=== PATIENT | male | born 1975 | race African-American/Black ===

== ENCOUNTER 2017-05-23 18:54 | Emergency (ER) | payer SELFPAY ==
[~2017-05-23] VITALS: Ht 177.8 cm; Wt 82.0 kg
[~2017-05-23 18:54] MED LIST: BACT800T5 PO; CEPH500C3 PO; IBUP800T23 PO
[2017-05-23 18:55] VITALS: BP 145/85; PULSE 99; RESP 16; TEMP 98.9; O2SAT 97
[2017-05-23 19:02] VITALS: BP 136/87; PULSE 87; RESP 18; O2SAT 96
[2017-05-23] MEDS ORDERED: SODIUM CHLORIDE 0.9% FLUSH 10 ML FLUSH IVF PRN (19:30)
[2017-05-23] MEDS ORDERED: LIDOCAINE VISCOUS 2% SOLN 15 ML UDC PO ONE (19:30)
[2017-05-23] MEDS ORDERED: ALUMINUM/MAGNESIUM/SIMETH 30 ML CUP PO ONE (19:30)
[2017-05-23] MEDS ORDERED: THIAMINE INJ 100 MG in SODIUM CHLORIDE 0.9% INJ 100 ML IV ONE (19:30)
[2017-05-23] MEDS ORDERED: SODIUM CHLOR 0.9% 1000 ML INJ 1,000 ML IV ONE (19:30)
--- NOTE | 2017-05-23 20:36 | PD ---
HPI Chief Complaint: Pain: Acute or Chronic Time Seen by Provider: 19:10 Travel History International Travel<30 days: No Contact w/Intl Traveler<30days: No Traveled to known affect area: No History of Present Illness HPI Patient is a 42-year-old male presents emergency department for evaluation of chest pain the middle of his chest for the past 3 years on and off. He cannot really elicit why he came in today, he states he's had a couple of beers tonight as well, mild slurred speech. Denies any shortness of breath denies abdominal pain nausea or vomiting. States the pain is intermittent and severe for the past 3 years with associated signs symptoms as above. PFSH Past Medical History Asthma: Yes Cardiovascular Problems: Yes Diminished Hearing: No Hypertension: Yes Respiratory: Yes (Bronchitis) Immunizations Current: Yes Past Surgical History Surgical History: No Previous Surgery Social History Alcohol Use: Yes Tobacco Use: Yes (cigars) Substance Use: Yes (MARIJUANA OCCASIONALLY) Allergies-Medications (Allergen,Severity, Reaction): Coded Allergies: No Known Allergies (Verified , 09/23/15) Reported Meds & Prescriptions Reported Meds & Active Scripts Active Ibuprofen 800 Mg Tab 800 Mg PO Q8HR PRN 10 Days Bactrim DS (Sulfamethoxazole-Trimethoprim DS) 1 Tab Tab 1 Tab PO BID 10 Days Keflex (Cephalexin Monohydrate) 500 Mg Cap 1 Tab PO QID 10 Days Review of Systems Except as stated in HPI: all other systems reviewed are Neg Physical Exam Narrative GENERAL: Well-developed well-nourished, no obvious distress. SKIN: Focused skin assessment warm/dry. HEAD: Atraumatic. Normocephalic. EYES: Pupils equal and round. No scleral icterus. No injection or drainage. ENT: No nasal bleeding or discharge. Mucous membranes pink and moist. NECK: Trachea midline. No JVD. CARDIOVASCULAR: Regular rate and rhythm. No murmur appreciated. RESPIRATORY: No accessory muscle use. Clear to auscultation. Breath sounds equal bilaterally. GASTROINTESTINAL: Abdomen soft, non-tender, nondistended. Hepatic and splenic margins not palpable. MUSCULOSKELETAL: No obvious deformities. No clubbing. No cyanosis. No edema. Ambulates with an even narrow based gait. NEUROLOGICAL: Awake and alert. No obvious cranial nerve deficits. Motor grossly within normal limits. Mildly slurred speech. PSYCHIATRIC: Appropriate mood and affect; insight and judgment normal. Data Data Last Documented VS Vital Signs Date Time Temp Pulse Resp B/P (MAP) Pulse Ox O2 Delivery O2 Flow Rate FiO2 05/23/17 19:38 05/23/17 19:02 87 18 96 05/23/17 18:55 98.9 Room Air Orders Orders Complete Blood Count With Diff (05/23/17 19:20) Comprehensive Metabolic Panel (05/23/17 19:20) Magnesium (Mg) (05/23/17:20) Troponin I (05/23/17:20) Ecg Monitoring (05/23/17:20) Iv Access Insert/Monitor (05/23/17:20) Oximetry (05/23/17:20) Oxygen Administration (05/23/17:20) Sodium Chloride 0.9% Flush (Ns Flush) (05/23/17:30) Sodium Chlor 0.9% 1000 Ml Inj (Ns 1000 M (05/23/17 19:30) Thiamine Inj (Thiamine Inj) (05/23/17:30) Al-Mag Hy-Si 40-40-4 Mg/Ml Liq (Mag-Al P (05/23/17:30) Lidocaine 2% Viscous (Xylocaine 2% Visco (05/23/17:30) Electrocardiogram (05/23/17 19:04) MDM Medical Decision Making Medical Screen Exam Complete: Yes Emergency Medical Condition: Yes Differential Diagnosis Alcohol intoxication, chest pain, ACS unlikely, GERD. Narrative Course Patient was roomed in the emergency department, after my initial evaluation I recommended patient have labs medications and then reassessment. He verbalized understanding and agreement. Shortly after patient's initial evaluation nursing reported to me that he eloped from the emergency department, he did tell me that his father had brought him in. I searched the emergency department waiting room for him and he was nowhere to be found. Diagnosis Primary Impression: Chest pain Patient Instructions: General Instructions Departure Forms: Tests/Procedures Disposition: 07 AGAINST MEDICAL ADVICE Condition: Stable Gino Thrasher MD May 23, 2017 20:36
--- NOTE | 2017-05-24 13:29 | EKG ---
Date Performed: 05/23/2017 Time Performed: 19:04:16 PTAGE: 42 years EKG: Sinus rhythm NORMAL ECG PREVIOUS TRACING : 04/14/2015 15.47 DOCTOR: Lexus Solano Interpretating Date/Time 05/24/2017 13:28:01
--- NOTE | 2017-05-24 13:29 | EKG ---
Date Performed: 05/23/2017 Time Performed: 19:04:16 PTAGE: 42 years EKG: Sinus rhythm NORMAL ECG PREVIOUS TRACING : 04/14/2015 15.47 DOCTOR: Lexus Solano Interpretating Date/Time 05/24/2017 13:28:01
--- NOTE | 2017-05-24 13:29 | EKG ---
Date Performed: 05/23/2017 Time Performed: 19:04:16 PTAGE: 42 years EKG: Sinus rhythm NORMAL ECG PREVIOUS TRACING : 04/14/2015 15.47 DOCTOR: Lexus Solano Interpretating Date/Time 05/24/2017 13:28:01
== END 2017-05-23 19:39 | disposition left against medical advice (07) ==
LOC: NEPE 18:54
DX: R07.9 Chest pain, unspecified (principal); F17.290 Nicotine dependence, other tobacco product, uncomplicated
CPT/HCPCS: 93005; 99283

== ENCOUNTER 2017-06-04 15:39 | Emergency (ER) | payer SELFPAY ==
[~2017-06-04] VITALS: Ht 180.3 cm; Wt 100.0 kg
[2017-06-04 15:48] VITALS: BP 145/102; PULSE 95; TEMP 98.8; O2SAT 96
== END 2017-06-04 16:05 | disposition left against medical advice (07) ==
LOC: NED 15:39
DX: R11.10 Vomiting, unspecified (principal); Z53.21 Procedure and treatment not carried out due to patient leaving prior to being seen by health care provider
CPT/HCPCS: 99281